=== PATIENT | female | born 1995 | race Caucasian/White ===

== ENCOUNTER 2016-12-09 01:27 | Emergency (ER) | payer MEDICAID, OTHER ==
[2016-12-09 01:43] VITALS: BP 127/93; PULSE 101; RESP 18; TEMP 99.2; O2SAT 99
== END 2016-12-09 01:51 | disposition home or self-care (01) | DRG 759 ==
LOC: ED 01:27
DX: B37.3 Candidiasis of vulva and vagina (principal)
CPT/HCPCS: 99282